=== PATIENT | female | born 1960 | race Caucasian/White ===

== ENCOUNTER 2019-01-10 08:13 | Emergency (ER) | payer MEDICAID ==
[~2019-01-10] VITALS: Ht 165.1 cm; Wt 73.9 kg
[2019-01-10 08:20] VITALS: BP 169/108
--- NOTE | 2019-01-10 08:20 | NUR ---
CAME IN FOR BUTTOCKS ABSCESS, GENERALIZED RASH X 3 WEEKS. TO ER BED 13, CHANGED TO [facility], HOOKED TO MONITOR, AWAITING MD SHAHID.
--- NOTE | 2019-01-10 08:27 | NUR ---
CHAPERONED DR BARRERA TO EVALUATE PATIENT
== END 2019-01-10 09:17 | disposition home or self-care (01) ==
LOC: ER 08:13
DX: S80.862A Insect bite (nonvenomous), left lower leg, initial encounter (principal); S80.861A Insect bite (nonvenomous), right lower leg, initial encounter; S40.862A Insect bite (nonvenomous) of left upper arm, initial encounter; S40.861A Insect bite (nonvenomous) of right upper arm, initial encounter; K62.9 Disease of anus and rectum, unspecified; R21 Rash and other nonspecific skin eruption; I10 Essential (primary) hypertension; Z98.890 Other specified postprocedural states; Z88.6 Allergy status to analgesic agent; Z88.0 Allergy status to penicillin; F17.200 Nicotine dependence, unspecified, uncomplicated; W57.XXXA Bitten or stung by nonvenomous insect and other nonvenomous arthropods, initial encounter; Y93.89 Activity, other specified; Y92.89 Other specified places as the place of occurrence of the external cause; Y99.8 Other external cause status

== ENCOUNTER 2019-07-07 17:29 | Emergency (ER) | payer MEDICAID ==
[~2019-07-07] VITALS: Ht 160 cm; Wt 68.0 kg
[2019-07-07] MEDS ORDERED: IV NS 0.9% 1,000 ML BAG IV ONE (18:30)
--- NOTE | 2019-07-07 18:30 | NUR ---
BIB WC FROM THE CAR BY THE . PT WAS C/O SEVERE ABD PAIN /KIDNEY PAIN. PT IS BENT OVER AND GUARDING.
[2019-07-07 18:35] LABS: APPEARANCE,URINE Cloudy (CLEAR); BILIRUBIN,URINE Negative (NEGATIVE); BLOOD, URINE Small Ery/uL (NEGATIVE); COLOR,URINE Light yellow (YELLOW); KETONES,URINE Negative (NEGATIVE); LEUKOCYTE ESTERASE ,URINE Negative (NEGATIVE); NITRITE, URINE Negative (NEGATIVE); PH,URINE 8.5 (5.0-8.0); PROTEIN,URINE Negative (NEGATIVE); UGLUCOSE Negative (NEGATIVE); UROBILINOGEN,URINE 0.2 EU/dL (0.2)
--- NOTE | 2019-07-07 18:38 | NUR ---
IV STARTED AND BLOOD WAS DRAWN. BLOOD SENT TO LAB.
--- NOTE | 2019-07-07 18:40 | NUR ---
PT WAS PLACED ON THE MONITOR AND CONTINUOUS PULSE OX.
[2019-07-07 18:45] LABS: BACTERIA,URINE Many /HPF (None Seen); SQUAMOUS EPITHELIAL CELL,UR Few /HPF (None Seen); WBC,URINE 0-2 /HPF (0-3)
[2019-07-07 18:46] LABS: URINE AMORPHOUS PHOSPHATES Many /HPF (None Seen)
[2019-07-07 18:52] LABS: BASOPHILS # (AUTO) 0.1 /CMM (0.0-0.2); BASOPHILS % (AUTO) 0.8 % (0.0-2.0); EOSINOPHILS % (AUTO) 0.3 % (0.0-6.0); HEMATOCRIT 43 % (33-45); HEMOGLOBIN 14.2 g/dL (11.5-14.8); LYMPHOCYTES # (AUTO) 1.5 /CMM (0.8-4.8); LYMPHOCYTES % (AUTO) 8.5 % (20.0-44.0); MEAN CORPUSCULAR HGB CONC 33 g/dl (31.0-36.0); MEAN CORPUSCULAR VOLUME 95 fL (82-100); MONOCYTES # (AUTO) 0.7 /CMM (0.1-1.30); NEUTROPHILS # (AUTO) 15.4 /CMM (1.8-8.9); NEUTROPHILS % (AUTO) 86.4 % (43.0-81.0); PLATELET COUNT (AUTO) 379 /CMM (150-450); RED BLOOD CELL COUNT(AUTO) 4.54 MIL/uL (4.0-5.2); WHITE BLOOD COUNT (AUTO) 17.8 K/uL (4.3-11.0)
[2019-07-07 19:00] LABS: CALCIUM, SERUM 9.4 mg/dL (8.5-10.1); CREATININE 0.9 mg/dL (0.6-1.3); POTASSIUM 3.8 mmol/L (3.5-5.1)
[2019-07-07 19:06] LABS: ALBUMIN 3.6 g/dL (3.4-5.0); BILIRUBIN,DIRECT 0.1 mg/dL (0.0-0.2); BILIRUBIN,TOTAL 0.3 mg/dL (0.2-1.0); TOTAL PROTEIN, SERUM 7.7 g/dL (6.4-8.2)
[2019-07-07] MEDS ORDERED: ONDANSETRON HCL/PF 4 MG/2 ML VIAL ONE (19:28)
[2019-07-07] MEDS ORDERED: MORPHINE SULFATE INJ 4 MG/ML DISP.SYRIN ONE (19:28)
[2019-07-07] MEDS ORDERED: ONDANSETRON HCL/PF - ER 4 MG/2 ML VIAL IV ONE (19:30)
[2019-07-07] MEDS ORDERED: MORPHINE SULFATE INJ 2 MG/ML DISP.SYRIN IV ONE (19:30)
[2019-07-07] MEDS ORDERED: HYDROMORPHONE INJ 0.5 MG/0.5 ML SYRINGE IV ONE (20:30)
[2019-07-07] MEDS ORDERED: HYDROMORPHONE 1 MG/1 ML DISP.SYRIN IV ONE (21:06)
--- NOTE | 2019-07-07 21:15 | NUR ---
PT REC'D MEDICATION ORDERED.
--- NOTE | 2019-07-07 22:07 | NUR ---
IV removed. Catheter intact and site benign. Pressure and 4x4 applied to site. No bleeding noted. Patient discharged to home in stable condition. Written and verbal after care instructions given. Patient verbalizes understanding of instruction AND RX. PT REC'D A STRAINER AND CONTAINER. PT LEFT VIA WC. VSS.
[2019-07-07 22:18] VITALS: BP 147/89
== END 2019-07-07 22:18 | disposition home or self-care (01) ==
LOC: ER 17:40
DX: N23 Unspecified renal colic (principal); D72.829 Elevated white blood cell count, unspecified; N28.89 Other specified disorders of kidney and ureter; I10 Essential (primary) hypertension; F17.200 Nicotine dependence, unspecified, uncomplicated; Z98.890 Other specified postprocedural states; Z88.0 Allergy status to penicillin; Z88.6 Allergy status to analgesic agent
CPT/HCPCS: 36415; 74176; 80048; 80076; 81001; 83605; 83690; 85025; 87040 ×2; 87086; 96374; 96375; 99284; J1170; J2270; J2405 ×2; J7030; 81000-TC

== ENCOUNTER 2020-03-08 10:30 | Emergency (ER) | payer MEDICAID, OTHER ==
[~2020-03-08] VITALS: Ht 160 cm; Wt 71.2 kg
[2020-03-08 10:47] VITALS: BP 159/111
[2020-03-08 11:24] LABS: APPEARANCE,URINE CLEAR (CLEAR); BILIRUBIN,URINE NEGATIVE (NEGATIVE); BLOOD, URINE TRACE Ery/uL (NEGATIVE); KETONES,URINE NEGATIVE (NEGATIVE); LEUKOCYTE ESTERASE ,URINE SMALL (NEGATIVE); NITRITE, URINE NEGATIVE (NEGATIVE); PROTEIN,URINE TRACE mg/dl (NEGATIVE); UGLUCOSE NEGATIVE (NEGATIVE)
[2020-03-08 11:29] LABS: COLOR,URINE DARK YELLOW (YELLOW)
[2020-03-08 11:53] LABS: BACTERIA,URINE Rare /HPF (None Seen); SQUAMOUS EPITHELIAL CELL,UR Moderate /HPF (None Seen)
[2020-03-08 11:54] LABS: MUCUS,URINE Moderate /LPF (None Seen)
--- NOTE | 2020-03-08 12:25 | NUR ---
Patient discharged to home in stable condition. Written and verbal after care instructions given. Patient verbalizes understanding of instruction. Pt ambulatory with a steady gait
== END 2020-03-08 12:28 | disposition home or self-care (01) ==
LOC: ER 10:36
DX: M54.5 Low back pain (principal); R30.9 Painful micturition, unspecified; I10 Essential (primary) hypertension; F17.200 Nicotine dependence, unspecified, uncomplicated; Z98.890 Other specified postprocedural states; Z88.0 Allergy status to penicillin; Z88.6 Allergy status to analgesic agent
CPT/HCPCS: 81000-TC; 87086-TC

== ENCOUNTER 2020-06-06 11:02 | Inpatient (IN) | payer OTHER ==
[~2020-06-06] VITALS: Ht 160 cm; Wt 65.8 kg
--- NOTE | 2020-06-06 11:10 | NUR ---
ABDOMINAL PAIN X 4 DAYS ASSOCIATED WITH COUGH. PATIENT A/OX4, BREATHING EVEN AND UNLABORED, NO SOB NOTED, NEEDS ATTENDED. ATTACHED TO THE ART COORDINATOR.
--- NOTE | 2020-06-06 11:30 | NUR ---
IV LINE ESTABLISHED, BLOOD DRAWN AND SENT TO LAB.
[2020-06-06] MEDS ORDERED: ONDANSETRON HCL/PF 4 MG/2 ML VIAL ONE (11:34)
[2020-06-06] MEDS ORDERED: IV NS 0.9% 1,000 ML BAG IV ONE (12:00)
[2020-06-06] MEDS ORDERED: ONDANSETRON HCL/PF 4 MG/2 ML VIAL IVP ONE (12:00)
[2020-06-06 12:07] LABS: BASOPHILS # (AUTO) 0.1 /CMM (0.0-0.2); BASOPHILS % (AUTO) 0.6 % (0.0-2.0); EOSINOPHILS % (AUTO) 0.5 % (0.0-6.0); HEMATOCRIT 36 % (33-45); HEMOGLOBIN 11.9 g/dL (11.5-14.8); LYMPHOCYTES # (AUTO) 3.6 /CMM (0.8-4.8); LYMPHOCYTES % (AUTO) 16.1 % (20.0-44.0); MEAN CORPUSCULAR HGB CONC 33 g/dl (31.0-36.0); MEAN CORPUSCULAR VOLUME 91 fL (82-100); MONOCYTES # (AUTO) 1.8 /CMM (0.1-1.30); MONOCYTES % (AUTO) 7.9 % (2.0-12.0); NEUTROPHILS # (AUTO) 16.8 /CMM (1.8-8.9); NEUTROPHILS % (AUTO) 74.9 % (43.0-81.0); PLATELET COUNT (AUTO) 500 /CMM (150-450); RED BLOOD CELL COUNT(AUTO) 3.92 MIL/uL (4.0-5.2); WHITE BLOOD COUNT (AUTO) 22.4 K/uL (4.3-11.0)
[2020-06-06 12:12] LABS: CALCIUM, SERUM 9.3 mg/dL (8.5-10.1); CREATININE 0.7 mg/dL (0.6-1.3)
[2020-06-06 12:17] LABS: ALBUMIN 2.4 g/dL (3.4-5.0); BILIRUBIN,DIRECT 0.1 mg/dL (0.0-0.2); BILIRUBIN,TOTAL 0.3 mg/dL (0.2-1.0)
[2020-06-06] MEDS ORDERED: LEVOFLOXACIN 750 MG /D5W 150ML 150 ML IV ONE (12:21)
[2020-06-06] MEDS ORDERED: LEVOFLOXACIN 750 MG /D5W 150ML PIGGYBACK IV ONE (12:30)
--- NOTE | 2020-06-06 12:46 | NUR ---
PAGED DR. MCGARRY NO ANSWER, LEFT MESSAGE.
[2020-06-06] MEDS ORDERED: MORPHINE SULFATE INJ 4 MG/ML DISP.SYRIN ONE (12:52)
[2020-06-06] MEDS ORDERED: MORPHINE SULFATE INJ 2 MG/ML DISP.SYRIN IV ONE (13:00)
[2020-06-06 13:11] LABS: BILIRUBIN,URINE NEGATIVE (NEGATIVE); BLOOD, URINE TRACE-INTA Ery/uL (NEGATIVE); COLOR,URINE YELLOW (YELLOW); LEUKOCYTE ESTERASE ,URINE LARGE (NEGATIVE); NITRITE, URINE POSITIVE (NEGATIVE); PROTEIN,URINE TRACE mg/dl (NEGATIVE); UGLUCOSE NEGATIVE (NEGATIVE)
[2020-06-06] MEDS ORDERED: GENTAMICIN 80 MG in IV D5W 50 ML IV ONE (13:30)
--- NOTE | 2020-06-06 13:43 | NUR ---
COVID SWAB SENT.
[2020-06-06 13:44] LABS: BACTERIA,URINE Many /HPF (None Seen); RBC,URINE 0-2 /HPF (0-2); SQUAMOUS EPITHELIAL CELL,UR Rare /HPF (None Seen)
[2020-06-06] MEDS: METRONIDAZOLE 500MG/ NS 100ML 500 MG in PREMIX 1 EA IV SCH ×2 (14:00→21:15)
[2020-06-06] MEDS ORDERED: HYDROCODONE/APAP 10/325MG TABLET PO PRN (16:30)
[2020-06-06] MEDS ORDERED: ZOLPIDEM TARTRATE 5 MG TABLET PO PRN (16:30)
[2020-06-06] MEDS ORDERED: ACETAMINOPHEN 325 MG TABLET PO PRN (16:30)
[2020-06-06] MEDS ORDERED: ONDANSETRON HCL/PF 4 MG/2 ML VIAL IVP PRN (16:30)
--- NOTE | 2020-06-06 16:30 | NUR ---
NURSING SUP GAVE M/S BED 315-2. VIKTORIYA IS THE NURSE.
--- NOTE | 2020-06-06 16:47 | NUR ---
REPORT GIVEN TO VIKTORIYA HUBBARD FOR [facility]ITA.
--- NOTE | 2020-06-06 17:00 | NUR ---
RN ADMITTING NOTE Patient ambulated form gurney to bed, A/Ox4, anxious and crying, c/o 10/10 pain in the LLQ, RLQ and flank pain. BP 144/87 HR 93 RR 18 T98.3F O2 sat 98% on RA. IV line int he RAC#18g is clean and intact flushing well. Bed is in lowest position, side rails x2 in upright position, call light is within reach, fall safety and aspiration precautions enforced. Will continue with admitting orders.
--- NOTE | 2020-06-06 17:05 | NUR ---
RN NOTE Ok to admin lactulose per Dr. Melgoza and replace potassium of 3.0 with 80meq PO potassium chloride Addendum: 06/06/20 at 1718 by TRI LEDBETTER RN Ok for patient to receive Rocephin per Dr. Melgoza and per pharmacy, will monitor for s/sx of allergic reaction d/y history of PCN allergy.
[2020-06-06 17:19] VITALS: BP 144/87
[2020-06-06] MEDS: MORPHINE SULFATE INJ 2 MG/ML DISP.SYRIN IV PRN (17:23)
[2020-06-06] MEDS: LACTULOSE 10 G/15 ML UDC (PYXIS) PO SCH ×2 (17:23→23:12)
[2020-06-06] MEDS ORDERED: POTASSIUM CHLORIDE 20 MEQ TAB.PRT.SR PO ONE (17:30)
[2020-06-06] MEDS: IV 1/2NS 1000 ML 1,000 ML IV PRN (17:35)
--- NOTE | 2020-06-06 17:48 | NUR ---
PATIENT REPORT REACTION TO PCN IS ANAPHYLACTIC SHOCK. REPORTED TO MD AND OK PER MD TO CHANGE TO [facility]. PHARMACY MADE AWARE.
[2020-06-06] MEDS ORDERED: CEFTRIAXONE 1 G in IV D5W 50 ML IV SCH (18:00)
--- NOTE | 2020-06-06 18:52 | NUR ---
RN CLOSING NOTE Patient is resting in bed, A/4, showing no signs of acute distress or SOB, stable on RA. Patient's pain has been managed. Patient was able to urinate. Patient was able to eat 100% of dinner. MRSA swab is not shown in the microbiology and f/u with NEHA Kim and she stated she will place the order for MRSA. Patient refused for me to swab her nose again. Bed is in lowest position, side rails x3 in upright position, call light is within reach, fall safety and aspirations precautions enforced. Will continue with plan of care.
--- NOTE | 2020-06-06 19:00 | NUR ---
RN opening notes Received Pt from morning nurse. Pt is resting in bed comfortably. Pt is alert and orientedX4. Respiration is normal in room air. No SOB. No S/S of distress noted. IV site at RAC# 18 is clean, intact and infusing well 0.45% ns @ 150 ml/hr. Safety precautions is maintained. Bed at low position, brakes locked, side railsupX2, bed alarm is on and call light is within reach. Will continue to monitor.
[2020-06-06 20:00] VITALS: BP 131/85
--- NOTE | 2020-06-06 22:50 | NUR ---
MS RN NOTE RECEIVED PATIENT IN BED RESING, WATCHING TV, PATIENT IN NO APPARENT RESPIRATORY DISTRESS NOTED. NO SIGN AND SYMPTOM OF PAIN NOTED AT THIS TIME. WILL CONTINUE PLAN OF CARE.
--- NOTE | 2020-06-06 22:51 | NUR ---
RN notes Transferred continuity of care to HAYDEE Arellano.
[2020-06-07] MEDS: IV 1/2NS 1000 ML 1,000 ML IV PRN ×2 (01:45→19:46)
[2020-06-07] MEDS: MORPHINE SULFATE INJ 2 MG/ML DISP.SYRIN IV PRN ×4 (01:47→20:12)
--- NOTE | 2020-06-07 01:47 | NUR ---
MS RN NOTE: PAIN PATIENT C/O ABDOMINAL PAIN 03/06, PATIENT REQUESTED TO GET MORPHINE. PRN MORPHINE 2MG/1ML IV GIVEN. WILL REASSESS FOR EFFECTIVENESS.
[2020-06-07] MEDS: METRONIDAZOLE 500MG/ NS 100ML 500 MG in PREMIX 1 EA IV SCH ×3 (04:40→21:37)
[2020-06-07] MEDS: LACTULOSE 10 G/15 ML UDC (PYXIS) PO SCH ×5 (04:51→23:21)
--- NOTE | 2020-06-07 04:53 | NUR ---
MS RN NOTE PATIENT DID NOT HAVE ANY BM THROUGH OUT THE SHIFT, LACTULOSE 10 MG PO GIVEN ORDERED. PER PATIENT SHE IS PASSING GAS. CONTINUING TO MONITOR.
--- NOTE | 2020-06-07 07:11 | NUR ---
MS RN CLOSING NOTE Patient is resting in bed, A/4, showing no signs of acute distress or SOB, stable on RA. Patient's pain has been managed. Patient was able to urinate but no BM at night. IVF running as ordered. Bed is in lowest position, side rails x3 in upright position, call light is within reach, fall safety and aspirations precautions enforced. Will endorse to am RN for continuity of care.
--- NOTE | 2020-06-07 07:51 | NUR ---
RN MS NOTE PATIENT IN BED RESTING COMFORTABLY. PATIENT IS IN NO ACUTE DISTRESS. NO SOB NOTED. PATIENTS BREATHING IS EVEN AND UNLABORED. PATIENT BED ALARM IS ON. SAFETY PRECAUTIONS IN PLACE. PATIENT BED IS LOCKED AND IN LOWEST POSITION. CALL LIGHT WITHIN REACH. WILL CONTINUE TO MONITOR.
[2020-06-07 08:00] VITALS: BP 130/102
[2020-06-07 08:22] LABS: BASOPHILS % (AUTO) 0.2 % (0.0-2.0); EOSINOPHILS % (AUTO) 0.6 % (0.0-6.0); HEMATOCRIT 35 % (33-45); HEMOGLOBIN 11.8 g/dL (11.5-14.8); LYMPHOCYTES # (AUTO) 2.8 /CMM (0.8-4.8); LYMPHOCYTES % (AUTO) 13.1 % (20.0-44.0); MEAN CORPUSCULAR HGB CONC 34 g/dl (31.0-36.0); MEAN CORPUSCULAR VOLUME 92 fL (82-100); MONOCYTES # (AUTO) 1.6 /CMM (0.1-1.30); MONOCYTES % (AUTO) 7.5 % (2.0-12.0); NEUTROPHILS # (AUTO) 16.6 /CMM (1.8-8.9); NEUTROPHILS % (AUTO) 78.6 % (43.0-81.0); PLATELET COUNT (AUTO) 539 /CMM (150-450); RED BLOOD CELL COUNT(AUTO) 3.85 MIL/uL (4.0-5.2); WHITE BLOOD COUNT (AUTO) 21.2 K/uL (4.3-11.0)
[2020-06-07 08:58] LABS: CALCIUM, SERUM 9.1 mg/dL (8.5-10.1); CREATININE 0.8 mg/dL (0.6-1.3); MAGNESIUM 1.7 mg/dL (1.8-2.4); PHOSPHORUS 3.1 mg/dL (2.5-4.9); POTASSIUM 3.9 mmol/L (3.5-5.1)
[2020-06-07 09:43] LABS: THYROID STIMULATING HORMONE 0.978 uIU/mL (0.358-3.74)
[2020-06-07] MEDS ORDERED: BISACODYL SUPP (10 MG) 10 MG/SUPP.RECT SUPP.RECT RC ONE (10:00)
[2020-06-07] MEDS: DOCUSATE SODIUM 100 MG CAPSULE PO SCH ×2 (10:12→16:28)
[2020-06-07] MEDS: LEVOFLOXACIN 750 MG /D5W 150ML 750 MG in PREMIX 1 EA IV SCH (12:02)
[2020-06-07 16:00] VITALS: BP 151/88
--- NOTE | 2020-06-07 17:03 | NUR ---
MS RN NOTE PATIENT STATED SHE HAD ONE SMALL BOWEL MOVEMENT.
[2020-06-07] MEDS: MINERAL OIL 133 ML (PYXIS) 1 EA ENEMA RC ONE ×2 (18:05→18:36)
[2020-06-07] MEDS: POLYETHYLENE GLYCOL 3350 17 GM POWD.PACK PO SCH (18:30)
--- NOTE | 2020-06-07 18:38 | NUR ---
MS RN NOTE PATIENT REFUSING MIRALAX SCHEDULED. EDUCATED RISKS VS BENEFITS. PATIENT CONTINUED TO REFUSE.
--- NOTE | 2020-06-07 18:39 | NUR ---
MS RN NOTE PATIENT REFUSING FLEET MINERAL ENEMA SCHEDULED. EDUCATED RISKS VS BENEFITS. PATIENT CONTINUED TO REFUSE.
--- NOTE | 2020-06-07 19:04 | NUR ---
MS RN NOTE PATIENT IS IN BED RESTING COMFORTABLY. PATIENT IS IN NO ACUTE DISTRESS. NO SOB NOTED. PATIENTS BREATHING IS EVEN AND UNLABORED. PATIENT KEPT CLEAN AND DRY, COMFORTABLE THROUGHOUT THE SHIFT. NEEDS AND CONCERNS ADDRESSED. PATIENTS BED IS LOCKED AND AT THE LOWEST POSITION, CALL LIGHT WITHIN REACH. ENDORSE TO THE WORKSHOP MANAGER NURSE FOR RITA.
--- NOTE | 2020-06-07 19:42 | NUR ---
MS OPENING RN NOTE PATIENT IN BED RESTING COMFORTABLY. ALERT AND ORIENTED X4, IN NO ACUTE DISTRESS. NO SOB NOTED. RESPIRATIONS ARE EVEN AND UNLABORED. DENIES PAIN OR DISCOMFORT AT THIS TIME. IV SITE ON RAC #18 PATENT AND INTACT. BED IS LOCKED AND AT THE LOWEST POSITION. CALL LIGHT WITHIN REACH.
[2020-06-07] MEDS: Magnesium 1GM/D5W 100ML PREMIX 100 ML IV SCH ×2 (19:45→20:50)
[2020-06-07 20:00] VITALS: BP 135/75
--- NOTE | 2020-06-07 20:14 | NUR ---
MS-NOTE: ABDOMINAL PAIN PATIENT C/O LOWER ABDOMINAL PAIN ON A PAIN SCALE OF 8/10. ADMINISTERED MORPHINE 1ML IV PUSH ORDERED. WILL CONTINUE TO REASSESS.
[2020-06-07 22:00] VITALS: BP 135/75
[2020-06-08] MEDS: MORPHINE SULFATE INJ 2 MG/ML DISP.SYRIN IV PRN ×3 (03:20→17:48)
--- NOTE | 2020-06-08 03:23 | NUR ---
MS-NOTE: LOWER ABDOMINAL PAIN PATIENT C/O LOWER ABDOMINAL PAIN ON A PAIN SCALE OF 8/10. PATIENT REQUESTED FOR MORPHINE. ADMINISTERED MORPHINE 1ML IVP GIVEN ORDERED. WILL CONTINUE TO REASSESS FOR THE EFFECTIVENESS OF MEDICATION.
[2020-06-08] MEDS: METRONIDAZOLE 500MG/ NS 100ML 500 MG in PREMIX 1 EA IV SCH ×3 (03:36→20:36)
[2020-06-08] MEDS: LACTULOSE 10 G/15 ML UDC (PYXIS) PO SCH ×4 (04:36→22:45)
--- NOTE | 2020-06-08 06:25 | NUR ---
MS RN CLOSING NOTE Patient in bed asleep, arouses easily. A/OX4, showing no signs of acute distress or SOB, stable on RA. Denies pain or discomfort at this time. Bed is in lowest position. All needs met and attended. Call light is within reach, fall safety and aspirations precautions enforced. Will endorse to morning RN for continuity of care.
[2020-06-08 06:52] LABS: BASOPHILS # (AUTO) 0.1 /CMM (0.0-0.2); BASOPHILS % (AUTO) 0.3 % (0.0-2.0); EOSINOPHILS % (AUTO) 0.6 % (0.0-6.0); HEMATOCRIT 33 % (33-45); HEMOGLOBIN 10.9 g/dL (11.5-14.8); LYMPHOCYTES # (AUTO) 3.2 /CMM (0.8-4.8); LYMPHOCYTES % (AUTO) 18.1 % (20.0-44.0); MEAN CORPUSCULAR HGB CONC 33 g/dl (31.0-36.0); MEAN CORPUSCULAR VOLUME 91 fL (82-100); MONOCYTES # (AUTO) 1.5 /CMM (0.1-1.30); MONOCYTES % (AUTO) 8.7 % (2.0-12.0); NEUTROPHILS # (AUTO) 12.7 /CMM (1.8-8.9); NEUTROPHILS % (AUTO) 72.3 % (43.0-81.0); PLATELET COUNT (AUTO) 509 /CMM (150-450); WHITE BLOOD COUNT (AUTO) 17.6 K/uL (4.3-11.0)
[2020-06-08 08:00] VITALS: BP 131/88
[2020-06-08] MEDS: POLYETHYLENE GLYCOL 3350 17 GM POWD.PACK PO SCH (08:11)
[2020-06-08] MEDS: DOCUSATE SODIUM 100 MG CAPSULE PO SCH ×2 (08:11→17:12)
[2020-06-08] MEDS ORDERED: MINERAL OIL 133 ML (PYXIS) 1 EA ENEMA RC ONE (09:30)
[2020-06-08 11:17] LABS: CALCIUM, SERUM 9.1 mg/dL (8.5-10.1); CREATININE 0.7 mg/dL (0.6-1.3); MAGNESIUM 2.3 mg/dL (1.8-2.4); POTASSIUM 3.8 mmol/L (3.5-5.1)
[2020-06-08] MEDS: LEVOFLOXACIN 750 MG /D5W 150ML 750 MG in PREMIX 1 EA IV SCH (12:09)
[2020-06-08] MEDS: HYDROCODONE/APAP 5/325MG TABLET PO PRN ×2 (12:22→22:11)
[2020-06-08 16:00] VITALS: BP 143/91
--- NOTE | 2020-06-08 18:26 | NUR ---
MS RN CLOSING NOTE PATIENT IS IN BED RESTING COMFORTABLY. PATIENT IS IN NO ACUTE DISTRESS. NO SOB NOTED. PATIENTS BREATHING IS EVEN AND UNLABORED. PATIENT KEPT CLEAN AND DRY, COMFORTABLE THROUGHOUT THE SHIFT. NEEDS AND CONCERNS ADDRESSED. PATIENTS BED IS LOCKED AND AT THE LOWEST POSITION, CALL LIGHT WITHIN REACH. ENDORSE TO THE PRODUCTION ENGINEER TRACK NURSE FOR [facility].
--- NOTE | 2020-06-08 19:22 | NUR ---
MS RN OPENING NOTES PATIENT AWAKE IN BED. A/OX4. ON RA; NO S/S OF ACUTE RESPIRATORY DISTRESS; BREATHING IS EVEN AND UNLABORED. NO C/O PAIN. IV PRESENT ON LEFT HAND, SIZE 22, INTACT & PATENT HEP LOCKED. SAFETY MEASURES IN PLACE AND PATIENT'S NEEDS MET. BED LOCKED, SIDE RAILS X2, CALL LIGHT WITHIN REACH. WILL CONTINUE TO MONITOR.
[2020-06-08 20:00] VITALS: BP 146/93
[2020-06-09] MEDS: MORPHINE SULFATE INJ 2 MG/ML DISP.SYRIN IV PRN (03:58)
[2020-06-09 03:59] VITALS: BP 139/89
[2020-06-09] MEDS: METRONIDAZOLE 500MG/ NS 100ML 500 MG in PREMIX 1 EA IV SCH ×2 (03:59→05:33)
[2020-06-09] MEDS: LACTULOSE 10 G/15 ML UDC (PYXIS) PO SCH ×3 (05:00→10:04)
[2020-06-09 07:27] LABS: BASOPHILS # (AUTO) 0.1 /CMM (0.0-0.2); BASOPHILS % (AUTO) 0.4 % (0.0-2.0); EOSINOPHILS % (AUTO) 1.1 % (0.0-6.0); HEMATOCRIT 34 % (33-45); HEMOGLOBIN 11.2 g/dL (11.5-14.8); LYMPHOCYTES # (AUTO) 2.8 /CMM (0.8-4.8); LYMPHOCYTES % (AUTO) 18.2 % (20.0-44.0); MEAN CORPUSCULAR HGB CONC 33 g/dl (31.0-36.0); MEAN CORPUSCULAR VOLUME 90 fL (82-100); MONOCYTES # (AUTO) 1.1 /CMM (0.1-1.30); MONOCYTES % (AUTO) 6.8 % (2.0-12.0); NEUTROPHILS # (AUTO) 11.5 /CMM (1.8-8.9); NEUTROPHILS % (AUTO) 73.5 % (43.0-81.0); PLATELET COUNT (AUTO) 534 /CMM (150-450); RED BLOOD CELL COUNT(AUTO) 3.74 MIL/uL (4.0-5.2); WHITE BLOOD COUNT (AUTO) 15.6 K/uL (4.3-11.0)
--- NOTE | 2020-06-09 07:45 | NUR ---
MS RN NOTES PATIENT RECEIVED IN BED, ALERT AND ORIENTED X 4, ON ROOM AIR WITH NO RESPIRATORY DISTRESS NOTED, WITH EVEN NON-LABORED BREATHING. PATIENT SKIN WARM AND DRY TO TOUCH, IV ACCESS INTACT AND PATENT. PATIENT PRESENTING WITH NO PAIN OR DISCOMFORT AT THIS TIME. SAFETY PRECAUTIONS IMPLEMENTED WITH BED LOCKED, BED IN THE LOWEST POSITION BILATERAL SIDE RAILS UP, AND CALL LIGHT WITHIN EASY REACH OF PATIENT. WILL CONTINUE TO MONITOR PATIENT.
--- NOTE | 2020-06-09 07:50 | NUR ---
MS RN CLOSING NOTES PATIENT AWAKE IN BED. A/OX4. ON RA; NO C/O SOB; BREATHING IS EVEN AND UNLABORED. NO C/O PAIN. IV PRESENT ON RIGHT HAND, SIZE 22, INTACT & PATENT HEP LOCKED. SAFETY MEASURES IN PLACE AND PATIENT'S NEEDS MET. BED LOCKED, SIDE RAILS X2, CALL LIGHT WITHIN REACH. ENDORSED TO DAY SHIFT RN PLAN OF CARE.
[2020-06-09 07:53] LABS: CALCIUM, SERUM 9.1 mg/dL (8.5-10.1); CREATININE 0.7 mg/dL (0.6-1.3); POTASSIUM 3.8 mmol/L (3.5-5.1)
[2020-06-09 08:00] VITALS: BP 141/84
[2020-06-09] MEDS: POLYETHYLENE GLYCOL 3350 17 GM POWD.PACK PO SCH (09:59)
[2020-06-09] MEDS: DOCUSATE SODIUM 100 MG CAPSULE PO SCH (09:59)
[2020-06-09] MEDS ORDERED: MAGNESIUM CITRATE 296 ML BOTTLE PO ONE (11:00)
[2020-06-09] MEDS: LEVOFLOXACIN 750 MG /D5W 150ML 750 MG in PREMIX 1 EA IV SCH (12:15)
--- NOTE | 2020-06-09 13:15 | NUR ---
CLOTH COVERER NOTES PATIENT ALERT AND ORIENTED X 4, ON ROOM AIR WITH NO RESPIRATORY DISTRESS NOTED, WITH EVEN NON-LABORED BREATHING. VITALS SIGNS WNL, PATIENT SKIN KEPT CLEAN, WARM AND DRY TO TOUCH, IV ACCESS, REMOVED, CATHETER TIP INTACT AND APPLIED PRESSURE TO SITE. PATIENT PRESENTING WITH NO PAIN OR DISCOMFORT AT THIS TIME. PATIENT WAS BEING IMPATIENT AND STATING SHE WANTS TO LEAVE AND HER RIDE IS HERE, AND THEY CAN NOT WAIT. PATIENT ACCOUNTED FOR ALL BELONGINGS. INFORMED THE PATIENT WAIT AND PATIENT REFUSED TO SIGN EXIT CARE, PATIENT STATING "I DON'T CARE" AND LEFT UNIT VIA WHEELCHAIR ACCOMPANIED BY VIDEOTAPE SALES REPRESENTATIVE, LEFT HOSPITAL IN PRIVATE CAR.
[2020-06-09] MEDS ORDERED: LEVO500T90 PO (16:02)
== END 2020-06-09 13:20 | disposition home or self-care (01) | DRG 720 ==
LOC: ER 11:13 → MED 16:38
PROVIDERS: ATTEND Nurse Practitioner Acute Care
DX: A41.9 Sepsis, unspecified organism (principal); E44.0 Moderate protein-calorie malnutrition; N20.2 Calculus of kidney with calculus of ureter; K59.00 Constipation, unspecified; N39.0 Urinary tract infection, site not specified; Z98.890 Other specified postprocedural states; I10 Essential (primary) hypertension; Z88.6 Allergy status to analgesic agent; Z88.0 Allergy status to penicillin; Z20.828 Contact with and (suspected) exposure to other viral communicable diseases; N83.209 Unspecified ovarian cyst, unspecified side; Z59.0 Homelessness; Z72.0 Tobacco use; B96.4 Proteus (mirabilis) (morganii) as the cause of diseases classified elsewhere; I70.8 Atherosclerosis of other arteries; K57.90 Diverticulosis of intestine, part unspecified, without perforation or abscess without bleeding; Z87.442 Personal history of urinary calculi; K44.9 Diaphragmatic hernia without obstruction or gangrene
CPT/HCPCS: 36415; 71045-TC; 80048-TC; 80061-TC; 80076-TC; 81001; 83605-TC; 83690-TC; 83735-TC; 84100-TC; 84443-TC; 85025-TC; 87040-TC; 87081-TC; 87086-TC; 87186-TC; A4216; C9803; G0378; J0696; J1580; J1956; J2270; J2405; J3475; J3490; J7030; J7060